=== PATIENT | female | born 1940 | race Caucasian/White ===

== ENCOUNTER 2017-03-29 13:31 | Emergency (ER) | payer MEDICARE, OTHER ==
[2017-03-29 15:49] LABS: #Basophils 0.1 thou/uL (0.0-0.2); #Eosinphils 0.2 thou/uL (0.0-0.7); #Lymphocytes 2.9 thou/uL (1.20-3.40); #Monocytes 0.6 thou/uL (0.11-0.59); #Neutrophils 6.4 thou/uL (1.40-6.50); %Basophils 0.9 % (0.0-1.0); %Monocytes 5.9 % (0.0-10.0); Hematocrit 46.9 % (36.0-47.0); Mean Platelet Volume 7.2 fL (7.4-10.4); Red Blood Cell (RBC) Count 4.89 mill/uL (4.20-5.40); White Blood Cell (WBC) Count 10.2 thou/uL (4.8-10.8)
[2017-03-29] MEDS ORDERED: diphenhydrAMINE HCl 50 MG/ML 1 ML VIAL ONE (15:54)
[2017-03-29] MEDS ORDERED: Metoclopramide HCl 10 MG/2 ML VIAL ONE (16:17)
[2017-03-29 16:21] LABS: ALT (SGPT) 19 U/L (8-55); AST (SGOT) 15 U/L (5-34); Alkaline Phosphatase 75 U/L (40-150); Anion Gap 15 mmol/L (10-20); BUN (Urea Nitrogen) 16 mg/dL (9.8-20.1); Bilirubin, Total 0.4 mg/dL (0.2-1.2); Calc. Creatinine Clearance 0 mL/min (70-130); Calcium 9.5 mg/dL (7.8-10.44); Carbon Dioxide 19 mmol/L (23-31); Chloride 107 mmol/L (98-107); Estimated GFR-MDRD 78; Magnesium 2.3 mg/dL (1.6-2.6); Protein, Total 7.1 g/dL (6.0-8.3)
--- NOTE | 2017-03-29 16:35 | CT ---
CT OF THE BRAIN WITHOUT CONTRAST: Date: 03/29/17 COMPARISON: None. HISTORY: Headache for several days. TECHNIQUE: Multiple contiguous axial images were obtained in a CT of the brain without contrast. FINDINGS: The brain is normal in morphology and attenuation without focal lesions or confluent areas of infarc tion. There is no evidence of hydrocephalus, intracranial hemorrhage, or extra-axial fluid collectio n. The calvarium and overlying soft tissues are unremarkable. The visualized paranasal sinuses and mast oid air cells are well aerated. IMPRESSION: No evidence of acute intracranial abnormality. POS: [facility]
== END 2017-03-29 18:05 | disposition home or self-care (01) ==
LOC: ERS 13:31
DX: R51 Headache (principal); E78.00 Pure hypercholesterolemia, unspecified; F41.9 Anxiety disorder, unspecified; M19.90 Unspecified osteoarthritis, unspecified site; Z79.899 Other long term (current) drug therapy
CPT/HCPCS: 36415; 70450; 80053; 83735; 85025; 85652; 96365; 96375; J1200; J2765

== ENCOUNTER 2017-05-22 14:39 | Outpatient (CLI) | payer MEDICARE, OTHER ==
[2017-05-22 16:39] LABS: Hematocrit 40.4 % (36.0-47.0); Mean Platelet Volume 7.6 fL (7.4-10.4); Red Blood Cell (RBC) Count 4.22 mill/uL (4.20-5.40); White Blood Cell (WBC) Count 7.1 thou/uL (4.8-10.8)
== END 2017-05-22 14:40 | disposition home or self-care (01) ==
LOC: LABBT 14:39
PROVIDERS: ATTEND Obstetrics & Gynecology
DX: Z01.812 Encounter for preprocedural laboratory examination (principal); N81.6 Rectocele
CPT/HCPCS: 85027; 86850; 86900; 86901

== ENCOUNTER 2017-05-27 07:58 | Day surgery (SDC) | payer MEDICARE, OTHER ==
--- NOTE | 2017-05-22 10:48 | HP ---
Scheduled date of surgery is 05/27/2017. HISTORY OF PRESENT ILLNESS: Ms. Martin is a 76-year-old white female who was referred for symptomati c rectocele complaints. She has noticed a bulge in her vaginal vault and is requiring splinting of t he perineum to allow evacuation of her bowel movements. She denies any significant stress incontinen ce symptoms or other pelvic prolapse findings. PAST MEDICAL HISTORY: Significant for glaucoma. PAST SURGICAL HISTORY: None. SOCIAL HISTORY: She is a nonsmoker, nondrinker. ALLERGIES: She has no known drug allergies. FAMILY HISTORY: Hyperlipidemia in her father. CURRENT MEDICATIONS: Baclofen 10 mg at night for back spasms, pantoprazole, sodium 20 mg tablet at b edtime for GERD symptoms, timolol ophthalmic solution, brimonidine tartrate ophthalmic solution, kerry lopram 20 mg at bedtime, latanoprost ophthalmic solution, Advil p.r.n. for arthritic symptoms and Tyl enol 325 mg as needed for osteoarthritis symptoms. PHYSICAL EXAMINATION: VITAL SIGNS: Her blood pressure is 114/66, pulse 82 and regular, respirations are 18, height 68 inch es, weight 236 pounds with a BMI of 35.9. HEENT: Within normal limits. CHEST: Clear to auscultation. HEART: Regular rate and rhythm. S1 and S2 heart sounds. No murmurs, rubs or gallops. ABDOMEN: Soft, nontender and nondistended. No palpable masses. PELVIC: Vulva and vagina had no lesions. There was a grade 3 rectocele noted. No significant cysto steven was appreciated. The cervix was normal in appearance with no lesions. Uterus is small and nont lucy. No excessive prolapse noted. Adnexa were nontender with no masses. ASSESSMENT: A 76-year-old white female with a grade 3 rectocele, symptomatic. PLAN: Plan is for a posterior repair on 05/27/2017. Risks and benefits of the surgery was discussed in detail. She is set for surgery.
[2017-05-22 15:16] VITALS: BMI 35.6
[2017-05-27] MEDS ORDERED: CEFAZOLIN/Water 2 GM/20 ML SYRINGE ONE (08:50)
[2017-05-27] MEDS ORDERED: Lidocaine 1% w/Epinephrine 1:200K 30 ML VIAL ONE (09:12)
[2017-05-27] MEDS ORDERED: Midazolam HCl 2 mg/2 ml Vial ONE (09:15)
[2017-05-27] MEDS ORDERED: Fentanyl 100 MCG/2 ML VIAL ONE (09:15)
--- NOTE | 2017-05-27 11:43 | OP ---
DATE OF SURGERY: 05/27/2017 PREOPERATIVE DIAGNOSIS: A 76-year-old white female with symptomatic grade 3 rectocele. POSTOPERATIVE DIAGNOSIS: A 76-year-old white female with symptomatic grade 3 rectocele. PROCEDURE PERFORMED: Posterior repair. SURGEON: Aminah Schmidt M.D. JOB SUPERINTENDENT SURGEON: Yrn Whitlock D.O. ANESTHESIA: General endotracheal. ESTIMATED BLOOD LOSS: Less than 50 mL COMPLICATIONS: None. COUNTS: Correct x2. ANTIBIOTICS: Two grams [employer] airport operations coordinator to the OR. FINDINGS: 1. Grade 3 rectocele, status post reduction of hernia. 2. No evidence of suture placed in the rectal mucosa post-procedure with rectal exam check. DISPOSITION: Recovery room and then plan for same day surgery, discharge later this afternoon. DESCRIPTION OF OPERATIVE PROCEDURE: The patient previously received informed consent in regards to kahlil robertson. She was taken back to the operating room where she received a general anesthetic agent witho ut complications, placed in dorsal lithotomy position with use of Ori stirrups. She was prepped an d draped in usual sterile fashion. Trinh catheter was placed. At this time, exam under anesthesia w as performed. Two Allis clamps were placed at the 4 and 8 o'clock position of the vaginal introitus and the posterior vaginal mucosa was infiltrated with 1% lidocaine with epinephrine. Metzenbaum scis sors utilized in make a vertical incision from the introitus up to near the posterior cervix of the p osterior vaginal mucosa. The edges of the mucosa were grasped with Allis clamps for countertraction. The endopelvic fascial defect was dissected both sharply and bluntly reducing the rectocele defect. Once this was completed, another glove was placed and a rectal exam was performed. This allowed fo r location of the endopelvic fascial tear cephalad, which was grasped with Allis clamp on the patient 's left side and then the right side. An additional Allis clamps were placed endopelvic fascia more towards the introitus. The dirty glove was removed. A stitch of 0 Vicryl was placed in a figure-of- eight stitch fashion. The most cephalad portion of the endopelvic fascia, I am starting to reduce th e rectocele defect. This was carried out cephalad to caudad towards the introitus, repairing the rec tocele defect and closing the endopelvic fascia over the rectocele hernia. Once this was accomplishe d, a rectal exam was reperformed and no evidence of rectal sutures that were placed in the vagina was noted and good repair of the hernia was confirmed. The apex of the vaginal mucosa was then closed s tarting near with interrupted [id number] stitches incorporating some of the endopelvic fascia. With the vaginal mucosa was completely closed, hemostasis confirmed. A moistened Kerlix sponge was t hen placed in the vagina. The patient was awakened from anesthesia and transferred to the recovery r oom in stable condition.
[2017-05-27] MEDS ORDERED: Lidocaine 1% PF 5 ML VIAL ONE (16:14)
[2017-05-27] MEDS ORDERED: Propofol 200 MG/20 ML VIAL ONE (16:14)
[2017-05-27] MEDS ORDERED: Dexamethasone 20 MG/5 ML VIAL ONE (16:14)
[2017-05-27] MEDS ORDERED: ePHEDrine/0.9% NaCl/PF SYRINGE 50 mg/10 ml ONE (16:14)
[2017-05-27] MEDS ORDERED: PHENYLEPHRINE-NS 100 MCG/ML 10 ML SYRINGE ONE (16:14)
[2017-05-27] MEDS ORDERED: Ondansetron HCl/PF 4 MG/2 ML Vial ONE (16:14)
== END 2017-05-27 16:40 | disposition home or self-care (01) ==
LOC: SDC 07:58
PROVIDERS: ATTEND Obstetrics & Gynecology
PROC: 0JQC0ZZ Repair Pelvic Region Subcutaneous Tissue and Fascia, Open Approach (ICD-10-PCS; principal; 2017-05-27)
DX: N81.6 Rectocele (principal); E78.00 Pure hypercholesterolemia, unspecified; F41.9 Anxiety disorder, unspecified; Z79.899 Other long term (current) drug therapy; Z98.890 Other specified postprocedural states
CPT/HCPCS: J1100; J2001; J2250; J2405; J2704; J3010

== ENCOUNTER 2017-10-17 11:15 | Observation (INO) | payer MEDICARE ==
[2017-10-17 12:05] LABS: #Eosinphils 0.2 thou/uL (0.0-0.7); #Lymphocytes 2.6 thou/uL (1.20-3.40); #Monocytes 0.6 thou/uL (0.11-0.59); %Basophils 0.4 % (0.0-1.0); %Eosinophils 1.7 % (0.0-10.0); %Lymphocytes 27.1 % (21.0-51.0); %Monocytes 6.6 % (0.0-10.0); %Neutrophils 64.2 % (42.0-75.0); Hemoglobin 14.8 g/dL (12.0-16.0); Mean Corpuscular HGB CONC 34.8 g/dL (32.0-36.0); Mean Corpuscular Hemoglobin 32.2 pg (27.0-31.0); Mean Corpuscular Volume 92.6 fl (81.0-99.0); Mean Platelet Volume 7.3 fL (7.4-10.4); Platelet Count 194 thou/uL (130-400); RBC Distribution Width 12.2 % (11.5-14.5); Red Blood Cell (RBC) Count 4.59 mill/uL (4.20-5.40); White Blood Cell (WBC) Count 9.4 thou/uL (4.8-10.8)
[2017-10-17] MEDS ORDERED: CEFAZOLIN/Water 2 GM/20 ML SYRINGE ONE (12:25)
[2017-10-17] MEDS ORDERED: Midazolam HCl 2 mg/2 ml Vial ONE (12:30)
[2017-10-17] MEDS ORDERED: Fentanyl 100 MCG/2 ML VIAL ONE ×2 (12:30→20:35)
[2017-10-17] MEDS ORDERED: Fentanyl 250 MCG/5 ML VIAL ONE (16:39)
[2017-10-17] MEDS ORDERED: Bupivacaine PF 0.5% 30 ML VIAL ONE (16:42)
[2017-10-17] MEDS ORDERED: Bacitracin Zinc Ointment 30 gm TUBE ONE (16:42)
[2017-10-17] MEDS ORDERED: Bupivacaine HCl 0.5%/Epinephrine 1:200,000/PF 30 ml Vial ONE (19:29)
[2017-10-17] MEDS ORDERED: PROPOFOL 200 MG/20 ML VIAL ONE (19:49)
[2017-10-17] MEDS ORDERED: Lidocaine 1% PF 5 ML VIAL ONE (19:49)
[2017-10-17] MEDS ORDERED: PHENYLEPHRINE-NS 100 MCG/ML 10 ML SYRINGE ONE (19:49)
[2017-10-17] MEDS ORDERED: Dexamethasone 20 MG/5 ML VIAL ONE (19:49)
--- NOTE | 2017-10-17 19:58 | RAD ---
RIGHT WRIST TWO VIEWS 10/17/17 HISTORY: 76-year-old female status post ORIF right wrist. Metal plate and screws stabilize the distal radial fracture as well as metal plate and screws and pin s stabilizing the distal ulnar fracture. IMPRESSION: Status post ORIF distal radius and ulna. POS: [facility]
[2017-10-17] MEDS ORDERED: Promethazine HCl 25 MG/ML VIAL SLOW IVP PRN (20:18)
[2017-10-17] MEDS ORDERED: Ondansetron HCl/PF 4 MG/2 ML Vial IVP PRN (20:18)
[2017-10-17] MEDS ORDERED: Promethazine HCl 25 MG/ML VIAL IM PRN (20:18)
[2017-10-17] MEDS ORDERED: Morphine 4 MG/ML VIAL SLOW IVP PRN (20:27)
[2017-10-17] MEDS ORDERED: traMADol HCl 50 MG TAB PO PRN (20:27)
[2017-10-17] MEDS ORDERED: HYDROcodone/Acetaminophen 5/325 mg Tablet PO PRN (20:27)
[2017-10-17] MEDS ORDERED: Bisacodyl 10 MG SUPP PR PRN (20:27)
[2017-10-17] MEDS ORDERED: Communication Order-Pharmacy FS SCH (20:30)
[2017-10-17] MEDS ORDERED: TETANUS AND DIPHTHERIA TOX/PF 0.5 ML DISP.SYRIN IM SCH (20:30)
[2017-10-17] MEDS ORDERED: Vancomycin HCl 1 GM in Premix Bag 1 BAG IVPB SCH (21:00)
[2017-10-17] MEDS ORDERED: Aspirin 81 mg Enteric Coated Tablet PO SCH (21:00)
[2017-10-17] MEDS ORDERED: Promethazine HCl 25 MG/ML VIAL IM SCH (21:30)
[2017-10-17] MEDS ORDERED: Sodium Chloride 0.9% 500 ML IVPB SCH (21:30)
[2017-10-17 21:33] LABS: Anion Gap 16 mmol/L (10-20); BUN (Urea Nitrogen) 15 mg/dL (9.8-20.1); Calc. Creatinine Clearance 115 mL/min (70-130); Calcium 8.9 mg/dL (7.8-10.44); Carbon Dioxide 18 mmol/L (23-31); Chloride 109 mmol/L (98-107); Estimated GFR-MDRD 79; Glucose 174 mg/dL (83-110); Potassium 4.5 mmol/L (3.5-5.1); Sodium 138 mmol/L (136-145)
[2017-10-17] MEDS ORDERED: Sodium Chloride 0.9% 1,000 ML IV SCH (22:30)
[2017-10-18] VITALS: BMI 35.0
[2017-10-18] MEDS: Ketorolac Tromethamine 30 MG/ML VIAL IVP SCH ×2 (00:26→06:01)
[2017-10-18 08:11] VITALS: BP 94/54; TEMP 98
--- NOTE | 2017-10-20 14:03 | OP ---
DATE OF PROCEDURE: 10/17/2017 PREOPERATIVE DIAGNOSES: 1. Four-part displaced right distal radius fracture. 2. Ulnar styloid fracture type 2. POSTOPERATIVE DIAGNOSES: 1. Four-part displaced right distal radius fracture. 2. Ulnar styloid fracture type 2. FINDINGS POSTOP: 1. Four-part displaced right distal radius fracture. 2. Ulnar styloid fracture type 3 fracture involving below/proximal to the base of the ulnar styloid. PROCEDURES PERFORMED: 1. Open reduction internal fixation with marked bone grafting major type of the distal radius fractu re. 2. Open reduction internal fixation, ulnar styloid fracture. 3. C-arm supervision. BLOOD LOSS: 50 mL. TOURNIQUET TIME: 60 minutes, then with 20 minutes of deflation and then 30 minutes of tourniquet jefry e for the ulna. INDICATIONS: Fall with this type of displaced fracture and the frontal sagittal plane split of the m edial complex and possibly the styloid as well as ulnar styloid fracture appeared to be type 3, which should be fixed. DESCRIPTION OF PROCEDURE: After successful general LMA technique, the limb was prepped and draped. C-arm brought into field, attempted closed reduction knows that the joint could be partially reduced this way. Then, we exsanguinated the limb, inflated tourniquet to 250 mmHg pressure. A volar approa ch was made in the interval between flexor carpi radialis and the radial artery to reach deep to this where we found the pronator quadratus. We made L-shaped incision between the quadratus leaving flap on the base exposing the radial end. Then, it was here that we saw the marked comminution. We bega n to slowly disimpact the fragments using a [place] and a [place] elevator radiographs to be achieved enough of the fracture fragments to maintain posterior tilt. At the same time, we achieved this adequate position, passed K-wires subchondral and another K-wire f rom the radial styloid into the primary shaft. Then, we elevated it up and not to place bone graft b eginning dorsally more than prominent to achieve some tilt. We then placed a 5-hole Synthes distal r adius low profile plate on, placed 3 screws distal to the fracture subchondrally in excellent positio n and then this gave us enough tilt in the construct once we place the most distal to proximal screw, we achieved about 8 degrees more volar tilt. Now, the fracture with adequate in position, good vola r tilt, distal ulnar joint was congruent and the comminution dorsally was under control. We then silvia sayra remaining bone graft placed the plate into the shaft and achieve better sagittal plane tilt. We released the tourniquet, closed the pronator quadratus with interrupted 0 Vicryl, [id number] pattern, obtain hemostasis, close subcutaneous tissue with running 3-0 Monocryl and skin with 4-0 nyl on. Now, we have reinflated the tourniquet after exsanguination limb to 250 mmHg pressure. We then allow ed a zigzag incision centered on ulnar styloid fracture and carried through skin, subcutaneous tissue , and visualizing the superficial branch ulnar nerve protected it. We could visualize the fracture b ecause there was some tear in the capsule and then held anatomically with K-wires. Then, we placed a plate, Synthes low profile on the plate with four screws into the shaft with two distal fracture and 2 proximal to augment the construct. Patient then had the tourniquet deflated here and we closed th e fascia with interrupted 4-0 nylon to include interrupted 2-0 Vicryl, subcutaneous closed with 3-0 M onocryl and skin reapproximated epidermal level with interrupted 4-0 nylon mattress pattern. A bulky dressing applied and splint and the patient left the operating room without evidence of anesthetic o r operative complication.
== END 2017-10-18 10:28 | disposition home or self-care (01) ==
LOC: SDC 11:15 → SURG A 20:32
PROVIDERS: ADMIT Orthopaedic Surgery Hand Surgery; ATTEND Orthopaedic Surgery Hand Surgery
PROC: 0PSH04Z Reposition Right Radius with Internal Fixation Device, Open Approach (ICD-10-PCS; principal; 2017-10-17)
PROC: 0PSK04Z Reposition Right Ulna with Internal Fixation Device, Open Approach (ICD-10-PCS; 2017-10-17)
DX: S52.501A Unspecified fracture of the lower end of right radius, initial encounter for closed fracture (principal); S52.611A Displaced fracture of right ulna styloid process, initial encounter for closed fracture; F41.9 Anxiety disorder, unspecified; E78.5 Hyperlipidemia, unspecified; Z88.1 Allergy status to other antibiotic agents; Z98.890 Other specified postprocedural states; W19.XXXA Unspecified fall, initial encounter; Z79.899 Other long term (current) drug therapy
CPT/HCPCS: 25609; 25652; 73100; 76001; 80048; 85025; 96361; 96365; 96366; 96372; 96375 ×2; 96376; C1713 ×5; G0378; 36415; 96374; J0670; J1100; J1885; J2001; J2250; J2550; J2704; J3010; J3370; S0020

== ENCOUNTER 2018-04-16 13:01 | Outpatient (CLI) | payer MEDICARE ==
--- NOTE | 2018-04-16 14:46 | ULT ---
BILATERAL RENAL ULTRASOUND: Date: 04/16/18 HISTORY: Cystitis, feeling of incomplete bladder emptying. FINDINGS: Comparison made with exam of 12/21/15. The right kidney measures 10.7 cm in length and the left kidney measures 11.4 cm in length. No hydron ephrosis seen on either side. A 3.6 cm simple cyst is seen in the right kidney, which is larger comp ared to the previous exam. The pre-void bladder volume measures 236 mL, with a post-void residual of 125 mL. The urinary bladder is grossly unremarkable. IMPRESSION: 1. 3.6 cm right renal cyst. 2. Significant post-void residual in the urinary bladder. POS: [facility]
== END 2018-04-16 13:02 | disposition home or self-care (01) ==
LOC: SCSULT 13:01
PROVIDERS: ATTEND Urology
DX: N30.21 Other chronic cystitis with hematuria (principal); R39.14 Feeling of incomplete bladder emptying; N28.1 Cyst of kidney, acquired
CPT/HCPCS: 76770

== ENCOUNTER 2019-04-22 06:07 | Outpatient (CLI) | payer MEDICARE ==
[2019-04-22 14:26] LABS: #Basophils 0.1 thou/uL (0.0-0.2); #Eosinphils 0.3 thou/uL (0.0-0.7); #Lymphocytes 3.1 thou/uL (1.20-3.40); #Monocytes 0.8 thou/uL (0.11-0.59); %Eosinophils 3.4 % (0.0-10.0); %Lymphocytes 37.1 % (21.0-51.0); %Monocytes 9.6 % (0.0-10.0); Hemoglobin 14.1 g/dL (12.0-16.0); Mean Corpuscular HGB CONC 34.4 g/dL (32.0-36.0); Mean Corpuscular Hemoglobin 32.5 pg (27.0-31.0); Mean Corpuscular Volume 94.4 fL (78.0-98.0); Mean Platelet Volume 8.1 fL (7.4-10.4); Platelet Count 170 thou/uL (130-400); RBC Distribution Width 12.2 % (11.5-14.5); Red Blood Cell (RBC) Count 4.33 mill/uL (4.20-5.40); White Blood Cell (WBC) Count 8.3 thou/uL (4.8-10.8)
[2019-04-22 14:30] LABS: Bacteria/HPF 4+ HPF (None Seen); Bilirubin Negative (Negative); Blood, Urine Negative (Negative); Clarity Clear (Clear); Glucose, Urine (Dipstick) Normal (Negative); Leukocyte 75 Leu/uL (Negative); Nitrite 2+ (Negative); Protein, Urine (Dipstick) Negative (Neg-Trace); RBC/HPF 0-3 HPF (0-3); Urobilinogen Normal mg/dL (Less than 2)
[2019-04-22 14:32] LABS: INR-International Normal Ratio 1.1; Prothrombin Time 13.9 SEC (12.0-14.7)
[2019-04-22 14:45] LABS: Anion Gap 15 mmol/L (10-20); BUN (Urea Nitrogen) 15 mg/dL (9.8-20.1); Calc. Creatinine Clearance 0 mL/min (70-130); Calcium 9.5 mg/dL (7.8-10.44); Carbon Dioxide 20 mmol/L (23-31); Chloride 109 mmol/L (98-107); Estimated GFR-MDRD 76; Glucose 88 mg/dL (83-110); Sodium 140 mmol/L (136-145)
--- NOTE | 2019-04-22 17:37 | EKG ---
Test Reason : Blood Pressure : / mmHG Vent. Rate : 071 BPM Atrial Rate : 071 BPM P-R Int : 142 ms QRS Dur : 078 ms QT Int : 450 ms P-R-T Axes : 063 029 051 degrees QTc Int : 489 ms Normal sinus rhythm Low voltage QRS Cannot rule out Anterior infarct , age undetermined Abnormal ECG When compared with ECG of 18-FEB-2012 10:01, Minimal criteria for Anterior infarct are now Present Nonspecific T wave abnormality no longer evident in Anterior leads Confirmed by DR. Deb MCKEON (3) on 04/22/2019 5:36:34 PM Referred By: ELISE Confirmed By:DR. Deb MCKEON
== END 2019-04-22 06:08 | disposition home or self-care (01) ==
LOC: LABBT 06:07
PROVIDERS: ATTEND Orthopaedic Surgery
DX: Z01.818 Encounter for other preprocedural examination (principal); M17.12 Unilateral primary osteoarthritis, left knee
CPT/HCPCS: 80048; 81001; 85025; 85610; 87081; 93005; 93010

== ENCOUNTER 2019-05-03 05:40 | Inpatient (IN) | payer MEDICARE ==
[2019-04-22 12:41] VITALS: BMI 34.9
[2019-05-03] MEDS ORDERED: Sodium Chloride 0.9% 0 ML ONE (06:02)
[2019-05-03] MEDS ORDERED: Tranexamic Acid 1,000 MG/10 ML VIAL ONE ×3 (06:02→09:40)
[2019-05-03] MEDS ORDERED: Vancomycin 1.5 GRAM/300 ML BAG 1.5 GM in Premix Bag 1 BAG IVPB SCH ×2 (06:15→18:00)
[2019-05-03] MEDS ORDERED: Fentanyl 100 MCG/2 ML VIAL ONE ×3 (06:20→10:30)
[2019-05-03] MEDS ORDERED: Ropivacaine 0.2% HCl/PF 20 ML ONE (06:20)
[2019-05-03] MEDS ORDERED: Midazolam HCl 2 mg/2 ml Vial ONE (06:20)
[2019-05-03] MEDS ORDERED: Lidocaine 1% (PF) 30 ML VIAL ONE (06:20)
[2019-05-03] MEDS ORDERED: Sodium Chloride 0.9% 100 ML ONE (06:25)
[2019-05-03] MEDS ORDERED: diphenhydrAMINE 25 MG CAP PO PRN (07:22)
[2019-05-03] MEDS ORDERED: Ondansetron PF 4 MG/2 ML Vial IVP PRN ×2 (07:22→07:37)
[2019-05-03] MEDS ORDERED: traMADol HCl 50 MG TAB PO PRN ×3 (07:22→07:37)
[2019-05-03] MEDS ORDERED: Promethazine HCl 25 MG/ML VIAL IM PRN ×3 (07:22→08:28)
[2019-05-03] MEDS ORDERED: Zolpidem Tartrate 5 MG TAB PO PRN ×2 (07:22→07:37)
[2019-05-03] MEDS ORDERED: Acetaminophen 325 MG TAB PO PRN (07:22)
[2019-05-03] MEDS ORDERED: Fentanyl 100 MCG/2 ML VIAL SLOW IVP PRN ×2 (07:22→07:38)
[2019-05-03] MEDS ORDERED: HYDROcodone/Acetaminophen 10/325 mg Tablet PO PRN ×2 (07:22)
[2019-05-03] MEDS ORDERED: Tranexamic Acid 1,000 MG in Sodium Chloride 0.9% 100 ML IVPB SCH (07:30)
[2019-05-03 08:24] LABS: Bacteria/HPF None Seen HPF (None Seen); Bilirubin Negative (Negative); Blood, Urine Negative (Negative); Clarity Clear (Clear); Glucose, Urine (Dipstick) Normal (Negative); Leukocyte Negative Leu/uL (Negative); Nitrite Negative (Negative); Protein, Urine (Dipstick) Negative (Neg-Trace); RBC/HPF 0-3 HPF (0-3); Squamous Epithelial 0-3 HPF (0-3); Urobilinogen Normal mg/dL (Less than 2); WBC/HPF 0-3 HPF (0-3)
[2019-05-03] MEDS ORDERED: Ondansetron HCl/PF 4 MG/2 ML Vial IVP PRN (08:28)
[2019-05-03] MEDS ORDERED: Promethazine HCl 25 MG/ML VIAL SLOW IVP PRN (08:28)
[2019-05-03] MEDS ORDERED: Bupivacaine PF 0.5% 30 ML VIAL ONE ×2 (08:37→08:38)
[2019-05-03] MEDS ORDERED: Non-Formulary Item 1 EACH (Multivitamin [Multi-Vitamin Daily] 1 TABLET) PO SCH (09:00)
[2019-05-03] MEDS ORDERED: Bupivacaine HCl 0.5%/Epinephrine 1:200,000/PF 30 ml Vial ONE (10:13)
[2019-05-03] MEDS ORDERED: Ropivacaine 0.2% HCl/PF (40 MG/20 ML VIAL) ONE (10:13)
[2019-05-03] MEDS ORDERED: Ondansetron PF 4 MG/2 ML Vial ONE (10:13)
[2019-05-03] MEDS ORDERED: Lidocaine 1% PF 5 ML VIAL ONE (10:13)
[2019-05-03] MEDS ORDERED: PROPOFOL 200 MG/20 ML VIAL ONE (10:13)
[2019-05-03] MEDS ORDERED: ePHEDrine/0.9% NaCl/PF SYRINGE 50 mg/10 ml ONE (10:13)
--- NOTE | 2019-05-03 11:05 | OP ---
DATE OF PROCEDURE: 05/03/2019 PREPAROLE COUNSELING AIDE: Santiago Andrade PA-C PREOPERATIVE DIAGNOSIS: Right knee osteoarthrosis. POSTOPERATIVE DIAGNOSIS: Right knee osteoarthrosis. PROCEDURE PERFORMED: Right total knee replacement using [employer] pinless navigation. ESTIMATED BLOOD LOSS: Minimal. COMPLICATIONS: None. ANESTHESIA: She had a general anesthetic as well as a preoperative block. IMPLANTS: To the right knee include Richey Triathlon total knee system, we used a size 3 cruciate-retaining femur. We used a size 3 primary tibial baseplate. We used a 3 x 9 mm X3 tibial poly and an asymmetric 29 x 9 X3 patella. DISPOSITION: She did go to recovery room in stable condition. INDICATIONS: This is a 78-year-old female, who has been dealing with right knee arthritis for years and at this time wishes to have her knee replaced. PROCEDURE IN DETAIL: After all appropriate consent forms were explained and signed, the patient was taken back to the operating room and at this time was given general anesthetic. Once the level of anesthesia was appropriate, a well-padded tourniquet was placed on the right leg, and the leg was then prepped and draped in standard surgical fashion. The limb was exsanguinated and tourniquet taken up to 300 mmHg. Midline incision was made with a 10 blade down through the skin and subcutaneous tissue. Bovie electrocautery was used to coagulate any brisk venous bleeding. A new blade was used to make a medial parapatellar arthrotomy. Small subperiosteal release was performed medially and excess fat pad was removed. The knee was flexed up to gain access to the femur. The femur was navigated and distal femoral resection was made. Epicondylar access was used to align our sizing jig and this was pinned in place. We sized our femur to be a we used a size 3 cruciate- retaining femur. 4:1 cutting block was applied and pinned. Anterior and posterior chamfer cuts were then made. We navigated out our proximal tibia and made our proximal tibial resection. Spreaders were used to remove any posterior osteophytes off the back of the femur as well as remaining meniscal tissue. A long alignment hannah was then used to achieve correct rotation of our tibial baseplate and we used a size 3 primary tibial baseplate was chosen. This was pinned in place. We trialed the polyethylene and We used a 3 x 9 mm X3 tibial poly gave us full extension and good stability throughout range of motion. Two towel clips and a saw were used to cut our patella. Three lug nuts were drilled and an asymmetric 29 x 9 X3 patella was trialed which sat nicely in the trochlear groove. We then drilled our femur and punched our tibia. All components were removed. The knee was thoroughly irrigated and dried. Cement was mixed into the cement gun on the back table. Components were then placed. The knee was held out in full extension until the cement had dried. All excess bone cement was removed. Multiple #2 Vicryl stitches as well as a Quill were used to close our extensor mechanism. 0 Quill followed by a running Monoderm was then used to close the skin. Surgicel glue was then used on the skin. Once this had dried, soft tissue dressing was applied to the limb, tourniquet was let down, and the toes pinked up nicely. The patient was then awakened and taken to the recovery room in stable condition. All counts were correct at the end of the case. The patient did receive preoperative IV antibiotics. The patient was injected with Marcaine for postoperative pain relief. Job ID: [id number] [facility]
[2019-05-03] MEDS: Sodium Chloride 0.9% 1,000 ML IV SCH ×3 (11:29→21:36)
[2019-05-03] MEDS: Timolol 0.5% Ophth Soln 5 ml Bottle EA EYE SCH ×2 (11:30→21:36)
[2019-05-03] MEDS: Aspirin 81 mg Enteric Coated Tablet PO SCH ×2 (11:30→21:34)
[2019-05-03] MEDS: metFORMIN 500 MG TAB PO SCH ×2 (11:30→17:55)
[2019-05-03] MEDS: Aspirin/APAP/Caffeine Tab (Excedrin Migraine) PO SCH (11:33)
[2019-05-03] MEDS: Pantoprazole 40 MG GRANULES PACKET PO SCH (11:33)
[2019-05-03] MEDS: Citalopram 20 MG TAB PO SCH (11:33)
[2019-05-03] MEDS: Ketorolac Tromethamine 30 MG/ML VIAL IVP SCH ×3 (12:38→23:38)
[2019-05-03] MEDS ORDERED: Ketorolac Tromethamine 30 MG/ML VIAL IVP SCH (14:00)
[2019-05-03] MEDS: CEFAZOLIN 2 GM in Premix Bag 1 BAG IVPB SCH ×2 (14:13→21:35)
[2019-05-03] MEDS: HYDROcodone/Acetaminophen 10/325 mg Tablet PO PRN (15:44)
--- NOTE | 2019-05-03 19:47 | PDOC.HOSPP ---
- Subjective Encounter Date: 05/03/19 Encounter Time: 12:30 Subjective: pt up in bed has some tingling to her left foot, she has had this in the past. - Objective Vital Signs & Weight: Vital Signs (12 hours) Temp Pulse Resp BP Pulse Ox 05/03/19 16:30 97.4 F L 84 20 122/67 96 05/03/19 11:05 96.1 F L 68 14 103/56 L 96 Weight Weight 230 lb I&O: 05/02/19 05/03/19 05/04/19 06:59 06:59 06:59 Intake Total 1000 Output Total 400 Balance 600 Hospitalist ROS - Review of Systems Respiratory: denies: cough, dry, shortness of breath, hemoptysis, SOB with excertion, pleuritic pain, sputum, wheezing, other Cardiovascular: denies: chest pain, palpitations, orthopnea, paroxysmal noc. dyspnea, edema, light headedness, other Neurological: reports: other (tingling to her left foot) - Medication Medications: Active Medications Generic Name Dose Route Start Last Admin Trade Name Freq PRN Reason Stop Dose Admin Acetaminophen/Aspirin/Caffeine 1 tab 05/03/19 09:00 05/03/19 11:33 Excedrin Migraine PO Not Given DAILY ROBY Hydrocodone Bitart/Acetaminophen 2 tab 05/03/19 07:37 05/03/19 15:44 [place] 10/325 PO 2 tab Q4H PRN Administration PAIN (4-6) Aspirin 81 mg 05/03/19 09:00 05/03/19 11:30 Ecotrin PO Not Given BID ROBY Citalopram Hydrobromide 20 mg 05/03/19 09:00 05/03/19 11:33 Celexa PO Not Given QAM ROBY Cefazolin Sodium/Dextrose 2 gm 50 mls @ 100 mls/hr 05/03/19 14:00 05/03/19 14 :13 / Device IVPB 05/03/19 22:29 50 mls Q8HR ROBY Administration Sodium Chloride 1,000 mls @ 100 mls/hr 05/03/19 07:30 05/03/19 18:05 Normal Saline 0.9% IV Not Given .Q10H ROBY Ketorolac Tromethamine 15 mg 05/03/19 12:00 05/03/19 17:56 Toradol IVP 05/05/19 06:01 15 mg Q6HR ROBY Administration Metformin HCl 250 mg 05/03/19 08:00 05/03/19 17:55 Glucophage PO 250 mg BID-WM ROBY Administration Pantoprazole Sodium 20 mg 05/03/19 09:00 05/03/19 11:33 Protonix PO Not Given DAILY ROBY Timolol Maleate 1 drop 05/03/19 09:00 05/03/19 11:30 Timoptic 0.5% Ophth Soln EA EYE Not Given BID ROBY - Exam Neck: negative: supple, symmetric, no JVD, no thyromegaly, no lymphadenopathy, no carotid bruit, JVD Heart: negative: RRR, no murmur, no gallops, no rubs, normal peripheral pulses, irregular, diminshed peripheral pulses, murmur present, II/IV, III/IV Respiratory: negative: CTAB, no wheezes, no rales, no ronchi, normal chest expansion, no tachypnea, normal percussion, rales, rhonchi, tachypneic, wheezes Hosp A/P (1) Diabetes Code(s): E11.9 - TYPE 2 DIABETES MELLITUS WITHOUT COMPLICATIONS Status: Acute (2) Anxiety Code(s): F41.9 - ANXIETY DISORDER, UNSPECIFIED Status: Acute (3) Prolonged QT interval Code(s): R94.31 - ABNORMAL ELECTROCARDIOGRAM [ECG] [EKG] Status: Acute (4) Polycystic kidney Code(s): Q61.3 - POLYCYSTIC KIDNEY, UNSPECIFIED Status: Acute - Plan will continue home meds. pain managements per anesthesia. she does have a low voltage ekg but qtc is normal.
[2019-05-03] MEDS: Atorvastatin Calcium 10 MG TAB PO SCH (21:34)
[2019-05-03] MEDS: Latanoprost 0.005% Ophth Soln 2.5 ml Bottle EA EYE SCH (21:35)
[2019-05-04] MEDS: Ketorolac Tromethamine 30 MG/ML VIAL IVP SCH ×3 (05:22→18:15)
[2019-05-04 06:17] LABS: Hemoglobin 12.1 g/dL (12.0-16.0); Mean Corpuscular HGB CONC 34.6 g/dL (32.0-36.0); Mean Corpuscular Hemoglobin 33.3 pg (27.0-31.0); Mean Corpuscular Volume 96.2 fL (78.0-98.0); Mean Platelet Volume 8.2 fL (7.4-10.4); Platelet Count 141 thou/uL (130-400); RBC Distribution Width 12.1 % (11.5-14.5); Red Blood Cell (RBC) Count 3.63 mill/uL (4.20-5.40); White Blood Cell (WBC) Count 8.5 thou/uL (4.8-10.8)
[2019-05-04] MEDS: Senokot S 8.6-50 MG TAB PO SCH ×2 (08:30→20:03)
[2019-05-04] MEDS: Multivitamin W/ Minerals 1 TAB PO SCH (08:30)
[2019-05-04] MEDS: Ferrous Gluconate 324 MG TAB PO SCH ×2 (08:30→17:00)
[2019-05-04] MEDS: metFORMIN 500 MG TAB PO SCH ×2 (08:30→17:00)
[2019-05-04] MEDS: Citalopram 20 MG TAB PO SCH (08:31)
[2019-05-04] MEDS: Pantoprazole 40 MG GRANULES PACKET PO SCH (08:31)
[2019-05-04] MEDS: Aspirin 81 mg Enteric Coated Tablet PO SCH ×2 (08:32→20:03)
[2019-05-04] MEDS: Aspirin/APAP/Caffeine Tab (Excedrin Migraine) PO SCH (08:32)
[2019-05-04] MEDS: Timolol 0.5% Ophth Soln 5 ml Bottle EA EYE SCH ×2 (08:33→20:04)
[2019-05-04] MEDS ORDERED: Dextrose 50% Abboject 50 ML SYRINGE SLOW IVP PRN (09:10)
[2019-05-04] MEDS ORDERED: Dextrose 5% in Water 1,000 ML IV PRN (09:10)
[2019-05-04] MEDS ORDERED: Nitrofurantoin Monohyd/M-Cryst 100 MG CAP PO SCH (09:15)
[2019-05-04] MEDS: HYDROcodone/Acetaminophen 10/325 mg Tablet PO PRN ×2 (10:43→17:01)
[2019-05-04] MEDS: Ropivacaine HCl/PF 250 ML in Premix Bag 1 BAG NERVE BLCK SCH (10:44)
--- NOTE | 2019-05-04 10:46 | PRG ---
DATE OF SERVICE: 05/04/2019 SUBJECTIVE: Kamryn is a 78-year-old female postop day 1 from a right total knee arthroplasty. She is doing relatively well this morning. She has not ambulated yet. She sat at the side of bed yesterday evening, but has not walked since surgery. OBJECTIVE: VITAL SIGNS: Temperature 97, pulse 92, blood pressure 103/66, respiratory rate 12 and nonlabored, O2 saturation is 90% on room air. GENERAL: She is alert and oriented to person, place, time, and situation, grossly nonfocal. Responsive and appropriate with examiner. EXTREMITIES: Incision is clean. No strike through. She is neurovascularly intact in the right lower extremity. LABORATORY DATA: Hemoglobin and hematocrit 12.1 and 34.9. IMPRESSION: A 78-year-old feet female postop day 1 right total knee arthroplasty, doing well. PLAN: Initiate physical therapy. Probable discharge home tomorrow. Job ID: [id number]
[2019-05-04] MEDS: Nitrofurantoin Monohyd/M-Cryst 100 MG CAP PO SCH ×2 (10:48→20:03)
[2019-05-04] MEDS: Sodium Chloride 0.9% 1,000 ML IV SCH (13:27)
--- NOTE | 2019-05-04 13:48 | PDOC.EVN ---
Event Note - Event Note Event Note: The chart was reviewed for the purpose of Utilization Management. The patient's acuity of care does not meet the level of inpatient status. Therefore under the Medicare Provision Code 44, the patient's status will be changed to Observation. The patient's Attending Physician is aware, and agrees.
[2019-05-04] MEDS: HumaLOG 300 UNITS/3 ML VIAL SC PRN ×2 (18:19→22:23)
--- NOTE | 2019-05-04 19:17 | PDOC.HOSPP ---
- Subjective Encounter Date: 05/04/19 Encounter Time: 10:00 Subjective: Pt seen for followup re: DM II. States she feels well, no complaints. - Objective Vital Signs & Weight: Vital Signs (12 hours) Temp Pulse Resp BP Pulse Ox 05/04/19 16:38 98.6 F 76 16 129/80 92 L 05/04/19 10:25 94 L 05/04/19 07:30 98.7 F 92 16 98/64 92 L Weight Admit Weight 230 lb Weight 230 lb I&O: 05/03/19 05/04/19 05/05/19 06:59 06:59 06:59 Intake Total 2840 1000 Output Total 800 1400 Balance 2040 -400 Result Diagrams: 05/04/19 05:47 Additional Labs: Accuchecks 05/04/19 16:36 POC Glucose 153 H Labs and MARs reviewed by me. Hospitalist ROS - Review of Systems Cardiovascular: denies: chest pain, palpitations, orthopnea, paroxysmal noc. dyspnea, edema, light headedness Gastrointestinal: denies: nausea, vomiting, abdominal pain, diarrhea, constipation, melena, hematochezia - Medication Medications: Active Medications Generic Name Dose Route Start Last Admin Trade Name Freq PRN Reason Stop Dose Admin Acetaminophen/Aspirin/Caffeine 1 tab 05/03/19 09:00 05/04/19 08:32 Excedrin Migraine PO Not Given DAILY ROBY Hydrocodone Bitart/Acetaminophen 1 tab 05/03/19 07:37 05/04/19 10:43 [place] 10/325 PO 1 tab Q4H PRN Administration Pain (1-3) Hydrocodone Bitart/Acetaminophen 2 tab 05/03/19 07:37 05/04/19 17:01 [place] 10/325 PO 2 tab Q4H PRN Administration PAIN (4-6) Aspirin 81 mg 05/03/19 09:00 05/04/19 08:32 Ecotrin PO 81 mg BID ROBY Administration Atorvastatin Calcium 10 mg 05/03/19 21:00 05/03/19 21:34 Lipitor PO 10 mg QPM ROBY Administration Citalopram Hydrobromide 20 mg 05/03/19 09:00 05/04/19 08:31 Celexa PO 20 mg QAM ROBY Administration Ferrous Gluconate 324 mg 05/04/19 08:00 05/04/19 17:00 [place] PO 324 mg BID-WM ROBY Administration Sodium Chloride 1,000 mls @ 100 mls/hr 05/03/19 07:30 05/04/19 13:27 Normal Saline 0.9% IV Not Given .Q10H ROBY Ropivacaine 250 ml/ Device 250 mls @ 10 mls/hr 05/03/19 07:37 05/04/19 10:44 NERVE BLCK 05/06/19 07:36 250 mls INF ROBY Administration Insulin Human Lispro 0 units 05/04/19 09:10 05/04/19 18:19 Humalog SC 2 unit .MILD SLIDING SCALE PRN Administration Mild Correctional Scale Iron/Minerals/Multivitamins 1 tab 05/04/19 09:00 05/04/19 08:30 Theragran M PO 1 tab DAILY ROBY Administration Ketorolac Tromethamine 15 mg 05/03/19 12:00 05/04/19 18:15 Toradol IVP 05/05/19 06:01 15 mg Q6HR ROBY Administration Latanoprost 1 drop 05/03/19 21:00 05/03/19 21:35 Xalatan 0.005% Ophth Soln EA EYE 1 drop HS ROBY Administration Metformin HCl 250 mg 05/03/19 08:00 05/04/19 17:00 Glucophage PO 250 mg BID-WM ROBY Administration Nitrofurantoin Macrocrystals 100 mg 05/04/19 09:00 05/04/19 10:48 Macrobid PO 100 mg BID ROBY Administration Pantoprazole Sodium 20 mg 05/03/19 09:00 05/04/19 08:31 Protonix PO 20 mg DAILY ROBY Administration Senna/Docusate Sodium 2 tab 05/04/19 09:00 05/04/19 08:30 Senokot S PO 2 tab BID ROBY Administration Timolol Maleate 1 drop 05/03/19 09:00 05/04/19 08:33 Timoptic 0.5% Ophth Soln EA EYE 1 drop BID ROBY Administration - Exam General - other findings: Obese Eye: anicteric sclera ENT: moist mucosa Neck: supple Heart: RRR Respiratory: no rales Gastrointestinal: soft Extremities - other findings: s/p R knee surgery Psychiatric: normal affect, normal behavior Hosp A/P (1) Diabetes Code(s): E11.9 - TYPE 2 DIABETES MELLITUS WITHOUT COMPLICATIONS Status: Chronic (2) Arthritis Code(s): M19.90 - UNSPECIFIED OSTEOARTHRITIS, UNSPECIFIED SITE Status: Chronic (3) Anxiety Code(s): F41.9 - ANXIETY DISORDER, UNSPECIFIED Status: Chronic - Plan PT/OT, incentive spirometry, out of bed/ambulate Continue accuchecks, insulin sliding scale. DVT prophylaxis and pain management per orthopedic surgery service.
[2019-05-04] MEDS: Atorvastatin Calcium 10 MG TAB PO SCH (20:03)
[2019-05-04] MEDS: Latanoprost 0.005% Ophth Soln 2.5 ml Bottle EA EYE SCH (20:04)
[2019-05-05] MEDS: Ketorolac Tromethamine 30 MG/ML VIAL IVP SCH ×2 (00:43→06:25)
[2019-05-05] MEDS: Sodium Chloride 0.9% 1,000 ML IV SCH ×3 (00:50→19:22)
[2019-05-05] MEDS: HYDROcodone/Acetaminophen 10/325 mg Tablet PO PRN ×3 (04:07→16:06)
[2019-05-05 05:34] LABS: Hemoglobin 11.1 g/dL (12.0-16.0); Mean Corpuscular HGB CONC 33.8 g/dL (32.0-36.0); Mean Corpuscular Hemoglobin 32.2 pg (27.0-31.0); Mean Corpuscular Volume 95.1 fL (78.0-98.0); Mean Platelet Volume 8.1 fL (7.4-10.4); Platelet Count 125 thou/uL (130-400); Red Blood Cell (RBC) Count 3.46 mill/uL (4.20-5.40); White Blood Cell (WBC) Count 9.4 thou/uL (4.8-10.8)
[2019-05-05] MEDS: Senokot S 8.6-50 MG TAB PO SCH ×2 (08:51→20:50)
[2019-05-05] MEDS: Nitrofurantoin Monohyd/M-Cryst 100 MG CAP PO SCH ×2 (08:51→20:51)
[2019-05-05] MEDS: Ferrous Gluconate 324 MG TAB PO SCH ×2 (08:51→16:35)
[2019-05-05] MEDS: Aspirin 81 mg Enteric Coated Tablet PO SCH ×2 (08:51→20:51)
[2019-05-05] MEDS: Citalopram 20 MG TAB PO SCH (08:52)
[2019-05-05] MEDS: Multivitamin W/ Minerals 1 TAB PO SCH (08:52)
[2019-05-05] MEDS: Pantoprazole 40 MG GRANULES PACKET PO SCH (08:52)
[2019-05-05] MEDS: metFORMIN 500 MG TAB PO SCH ×2 (08:52→16:35)
[2019-05-05] MEDS: Timolol 0.5% Ophth Soln 5 ml Bottle EA EYE SCH ×2 (08:53→20:48)
[2019-05-05] MEDS: Aspirin/APAP/Caffeine Tab (Excedrin Migraine) PO SCH (08:56)
--- NOTE | 2019-05-05 09:38 | PRG ---
DATE OF SERVICE: 05/05/2019 SUBJECTIVE: Kamryn is a 78-year-old female postop day from a right total knee arthroplasty. She is feeling little washed out and worn out today. Her pain is relatively well controlled, but she tells me she is underestimated her recovery time. She ambulated 300 feet yesterday. OBJECTIVE: VITAL SIGNS: Temperature 98.3, pulse 83, respiratory rate 18, and blood pressure 136/78. GENERAL: She is alert and oriented to person, place, time, and situation. Responsive and appropriate with examiner. Nonfocal. EXTREMITIES: Incision is clean. No strike through and she is neurovascularly intact in the right lower extremity. LABORATORY DATA: Hemoglobin and hematocrit of 11.1 and 32.9. IMPRESSION: A 78-year-old female postop day right total knee arthroplasty. The patient was little slow at reaching full independence. We will consider keeping her overnight tonight to ensure her level of independence and ADLs. Job ID: [id number]
[2019-05-05] MEDS: Ropivacaine HCl/PF 250 ML in Premix Bag 1 BAG NERVE BLCK SCH (10:47)
[2019-05-05] MEDS: HumaLOG 300 UNITS/3 ML VIAL SC PRN ×3 (12:20→20:51)
[2019-05-05] MEDS: Latanoprost 0.005% Ophth Soln 2.5 ml Bottle EA EYE SCH (20:49)
[2019-05-05] MEDS: Atorvastatin Calcium 10 MG TAB PO SCH (20:51)
[2019-05-06] MEDS: Sodium Chloride 0.9% 1,000 ML IV SCH (05:43)
[2019-05-06] MEDS: HYDROcodone/Acetaminophen 10/325 mg Tablet PO PRN ×2 (05:59→12:10)
[2019-05-06] MEDS: HumaLOG 300 UNITS/3 ML VIAL SC PRN (06:00)
[2019-05-06 06:08] LABS: Hemoglobin 11.3 g/dL (12.0-16.0); Mean Corpuscular HGB CONC 33.8 g/dL (32.0-36.0); Mean Corpuscular Hemoglobin 32.3 pg (27.0-31.0); Mean Corpuscular Volume 95.5 fL (78.0-98.0); Mean Platelet Volume 8.2 fL (7.4-10.4); Platelet Count 150 thou/uL (130-400); RBC Distribution Width 11.9 % (11.5-14.5); White Blood Cell (WBC) Count 9.1 thou/uL (4.8-10.8)
[2019-05-06] MEDS: Ferrous Gluconate 324 MG TAB PO SCH (09:00)
[2019-05-06] MEDS: metFORMIN 500 MG TAB PO SCH (09:00)
[2019-05-06] MEDS: Pantoprazole 40 MG GRANULES PACKET PO SCH (09:01)
[2019-05-06] MEDS: Aspirin 81 mg Enteric Coated Tablet PO SCH (09:01)
[2019-05-06] MEDS: Citalopram 20 MG TAB PO SCH (09:01)
[2019-05-06] MEDS: Senokot S 8.6-50 MG TAB PO SCH (09:01)
[2019-05-06] MEDS: Multivitamin W/ Minerals 1 TAB PO SCH (09:01)
[2019-05-06] MEDS: Nitrofurantoin Monohyd/M-Cryst 100 MG CAP PO SCH (09:01)
[2019-05-06] MEDS: Timolol 0.5% Ophth Soln 5 ml Bottle EA EYE SCH (09:05)
[2019-05-06] MEDS: Aspirin/APAP/Caffeine Tab (Excedrin Migraine) PO SCH (09:05)
[2019-05-06 14:23] VITALS: BP 128/80; TEMP 98.2
== END 2019-05-06 14:19 | disposition home or self-care (01) | DRG 470 ==
LOC: SDC 05:40 → SURG B 11:19
PROVIDERS: ADMIT Orthopaedic Surgery; ATTEND Orthopaedic Surgery
PROC: 0SRC0J9 Replacement of Right Knee Joint with Synthetic Substitute, Cemented, Open Approach (ICD-10-PCS; principal; 2019-05-03)
DX: M17.11 Unilateral primary osteoarthritis, right knee (principal); Q61.3 Polycystic kidney, unspecified; I10 Essential (primary) hypertension; G43.909 Migraine, unspecified, not intractable, without status migrainosus; H26.9 Unspecified cataract; H40.9 Unspecified glaucoma; E66.9 Obesity, unspecified; F32.9 Major depressive disorder, single episode, unspecified; E11.9 Type 2 diabetes mellitus without complications; F41.9 Anxiety disorder, unspecified; I45.81 Long QT syndrome; Z68.35 Body mass index [BMI] 35.0-35.9, adult; Z79.84 Long term (current) use of oral hypoglycemic drugs; Z79.899 Other long term (current) drug therapy
CPT/HCPCS: 36415; 36416; 81001; 85027; C1713; C1776; J0670; J0690; J1885; J2001; J2250; J2405; J2704; J2795; J3010; J3490; S0020

== ENCOUNTER 2025-05-31 11:23 | Outpatient (CLI) | payer MEDICARE ==
[~2025-05-31 11:23] MED LIST: Iopamidol 370 76% 100 ML VIAL ONE
[2025-05-31 13:17] LABS: Estimated GFR - POC 74.0
== END 2025-05-31 11:24 | disposition home or self-care (01) ==
LOC: CT 11:23
PROVIDERS: ATTEND Internal Medicine
DX: C25.2 Malignant neoplasm of tail of pancreas (principal); R91.8 Other nonspecific abnormal finding of lung field; K59.00 Constipation, unspecified; K57.30 Diverticulosis of large intestine without perforation or abscess without bleeding; Z98.890 Other specified postprocedural states
CPT/HCPCS: 36415; 71260; 74177; 82565